=== PATIENT | female | born 1985 | race Two or more races ===

== ENCOUNTER → 2018-03-07 14:02 | Outpatient (CLI) | payer SELFPAY ==
[~2018-03-07 14:02] MED LIST: PRENAVITE1 TAB PO
== END | disposition home or self-care (01) ==
LOC: D.LDO 14:02
DX: O26.899 Other specified pregnancy related conditions, unspecified trimester (principal); Z3A.00 Weeks of gestation of pregnancy not specified

== ENCOUNTER 2018-03-12 20:43 | Inpatient (IN) | payer SELFPAY ==
[~2018-03-12] VITALS: Ht 157.5 cm; Wt 67.3 kg
--- NOTE | ~2018-03-12 | DS ---
PATIENT:RICKEY HUMMEL :87 MEDICAL RECORD: [id number] DISCHARGE SUMMARY ADMISSION DATE: 03/12/18 DISCHARGE DATE: 03/14/18 DATE OF ADMISSION: 03/12/2018 DATE OF DISCHARGE: 03/14/2018 ADMISSION DIAGNOSIS: Active labor at term. DISCHARGE DIAGNOSIS: Mother delivered at term. PROCEDURE: Vaginal delivery. ATTENDING FOR DELIVERY: Dr. Morrison. DISCHARGING PHYSICIAN: Dr. Early HISTORY OF PRESENT ILLNESS: See the H&P in the chart. SUMMARY OF HOSPITALIZATION: The patient was admitted to the hospital and delivered vaginally without incident. At the time of discharge, the patient reports minimal lochia. The patient has adequate pain control and does not request discharge pain medications. We have discussed contraception. She has been instructed to do sitz baths 2-3 times a day if possible. Standard precautions as well as contraception counseling have been gone over. Follow up in 6 weeks with delivering physician. TRANSINT:[id number] Voice Confirmation ID: [id number] DOCUMENT ID: [id number] BRANDI EARLY MD at 1321 CC: [id number] DICTATION DATE: 03/14/18 0902 DIRECTOR OF SPECIAL EDUCATION: 03/14/18 2329 DIS IN 03/14/18 [id number] [place] [address]
[2018-03-12 21:21] LABS: HEMATOCRIT 31.1 % (36.0-48.0); HEMOGLOBIN 10.3 g/dL (12-16); MCH 30.4 pg (26.0-34.0); MCHC 33.1 g/dL (31.0-37.0); MCV 91.7 fL (80.0-100.0); MEAN PLATELET VOLUME 13.3 fL (7.4-10.4); RBC 3.39 10x6/uL (4.00-5.40); RDW 13.2 % (11.5-14.5); WBC 7.8 10x3/uL (4.8-10.8)
[2018-03-13 02:26] VITALS: BP 114/69; Ht 157.5 cm; Wt 67.3 kg
[2018-03-13 03:36] VITALS: BP 118/64
[2018-03-13 07:25] VITALS: BP 102/64
[2018-03-13 11:51] VITALS: BP 107/56
[2018-03-13 15:50] VITALS: BP 103/60
[2018-03-13 19:35] VITALS: BP 112/74
[2018-03-14 06:13] LABS: RAPID PLASMA REAGIN Non Reactive (Non Reactive)
[2018-03-14 07:11] LABS: BASOPHILS 0.3 % (0-2); HEMATOCRIT 25.9 % (36.0-48.0); HEMOGLOBIN 9.1 g/dL (12-16); IMMATURE GRANULOCYTES 0.5 % (0-5); LYMPHOCYTES 32.9 % (15-50); MCH 32.5 pg (26.0-34.0); MCHC 35.1 g/dL (31.0-37.0); MCV 92.5 fL (80.0-100.0); NEUTROPHILS 57.3 % (40-80); RDW 13.4 % (11.5-14.5); WBC 7.3 10x3/uL (4.8-10.8)
[2018-03-14 07:14] LABS: PLATELET COUNT 124 10x3/uL (130-400)
[2018-03-14 08:33] VITALS: BP 110/63
== END 2018-03-14 12:39 | disposition home or self-care (01) | DRG 807 ==
LOC: D.LDO 20:43 → D.WS 21:04 → D.LD 21:04 → D.WS 03-13 02:49 → D.LD 03-13 18:45
PROVIDERS: Obstetrics & Gynecology
PROC: 10E0XZZ Delivery of Products of Conception, External Approach (ICD-10-PCS; principal; 2018-03-12)
DX: O99.824 Streptococcus B carrier state complicating childbirth (principal); Z37.0 Single live birth; Z3A.39 39 weeks gestation of pregnancy; O99.02 Anemia complicating childbirth; O72.1 Other immediate postpartum hemorrhage